=== PATIENT | female | born 1980 | race American Indian/Alaskan Native ===

== ENCOUNTER 2019-07-28 22:34 | Emergency (ER) | payer BC, OTHER ==
[2019-07-28 22:39] VITALS: BP 119/64
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
[2019-07-29] MEDS ORDERED: MORPHINE 4 MG/1 ML INJ IV ONE (01:21)
[2019-07-29] MEDS ORDERED: SODIUM CHLORIDE 0.9% 1000 ML 1,000 ML IV ONE (01:21)
[2019-07-29 02:01] LABS: Hemoglobin 13.6 gm/dl (10.1-14.3); Mean Corpuscular HGB Conc 33 % (30-34); Mean Corpuscular Volume 85 fl (79-97); Platelet Count 235 K/mm3 (140-440); Red Blood Count 4.84 M/mm3 (3.65-5.03); Red Cell Distribution Width 13.5 % (13.2-15.2)
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
[2019-07-29 02:37] LABS: Alanine Aminotransferase 12 units/L (7-56); Albumin 4.3 g/dL (3.9-5); BUN/Creatinine Ratio 11; Blood Urea Nitrogen 9 mg/dL (7-17); Calcium 9.2 mg/dL (8.4-10.2); Hemolysis Index 5
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
== END 2019-07-29 04:30 | disposition home or self-care (01) ==
LOC: ED 22:34
DX: S80.12XA Contusion of left lower leg, initial encounter (principal); R10.13 Epigastric pain; R07.89 Other chest pain; Z87.442 Personal history of urinary calculi; Z79.899 Other long term (current) drug therapy; Z88.5 Allergy status to narcotic agent; V49.49XA Driver injured in collision with other motor vehicles in traffic accident, initial encounter; Y93.89 Activity, other specified; Y92.410 Unspecified street and highway as the place of occurrence of the external cause; Y99.8 Other external cause status
CPT/HCPCS: 36415; 71045; 71275; 73590; 74177; 80053; 82550; 83690; 83735; 84484; 84702; 85027; 93005; 93010; 96374; 99285; J2270; J7030; Q9967